=== PATIENT | female | born 1950 | race African-American/Black ===

== ENCOUNTER 2017-05-30 07:57 | Day surgery (SDC) | payer MEDICARE, OTHER ==
[~2017-05-30] VITALS: Ht 152.4 cm; Wt 60.8 kg
[~2017-05-30 07:57] MED LIST: ACETAMINOPHEN 325 MG TAB PO PRN; ALBU17IN INH; BSS with VANC/TOB/EPI for EYE CASES IR ONE; CYCLOPENTOLATE 2% OPHTH SOLN 2ML BTL XX ONE; LIDOCAINE 3.5 % 1ML OPHTH TOPICAL GEL OU ONE; LISI10TA4 PO; OFLOXACIN 0.3 % (OCUFLOX) OPTH SOL 5ML XX ONE; PHENYLEPHRINE 2.5% OPHTH SOL 2ML XX ONE; PREM.6256 PO; PROPARACAINE 0.5% OPHTH SOL 15ML XX PRN; TROPICAMIDE 1% OPHTH SOLN 2ML XX ONE
[2017-05-30] MEDS ORDERED: LR 500 ML IV SCH (08:15)
[2017-05-30] MEDS ORDERED: POVIDONE-IODINE 5% OPHTH PREP SOL 30ML As Ordered ONE (09:40)
[2017-05-30] MEDS ORDERED: MOXIFLOXACIN IN BSS 0.25MG/0.25ML INTRACAMERAL INJ (OR EYE ONLY)(J2280) As Ordered ONE (09:40)
[2017-05-30] MEDS ORDERED: HEALON DUET (HEALON 10MG/ML 0.55ML & HEALON ENDOCOAT 30MG/ML 0.85ML) As Ordered ONE (09:40)
[2017-05-30] MEDS ORDERED: LIDOCAINE 1% SDV 5 ML VIAL As Ordered ONE (09:40)
[2017-05-30] MEDS ORDERED: TRIAMCINOLONE PRES FR 40 MG/ML 1ML(TRIESENCE)(OR EYE ONLY)(J3300 PER 1MG) As Ordered ONE (09:40)
[2017-05-30] MEDS ORDERED: MIDAZOLAM INJ 2 MG/2 ML VIAL (J2250) As Ordered ONE (10:12)
[2017-05-30] MEDS ORDERED: fentaNYL 100 MCG/2 ML INJECTION (J3010) As Ordered ONE (10:14)
[2017-05-30] MEDS ORDERED: ONDANSETRON 4MG/2ML VIAL (J2405) IV PRN (10:45)
[2017-05-30] MEDS ORDERED: KETOROLAC 0.5% OPHTH SOLN XX ONE (10:45)
[2017-05-30] MEDS ORDERED: TRIMETHOBENZAMIDE 300 MG CAP PO PRN (10:45)
[2017-05-30] MEDS ORDERED: AcetaZOLAMIDE 500 MG ER CAP PO ONE (10:45)
[2017-05-30] MEDS ORDERED: ACETAMINOPHEN TAB 650MG DOSE (2X325MG) PO PRN (10:45)
[2017-05-30 10:50] VITALS: BP 155/81
== END 2017-05-30 11:15 | disposition home or self-care (01) ==
LOC: M SDC 07:57
PROVIDERS: ATTEND Ophthalmology
DX: H26.9 Unspecified cataract (principal); I10 Essential (primary) hypertension; M12.9 Arthropathy, unspecified; J44.9 Chronic obstructive pulmonary disease, unspecified; Z79.899 Other long term (current) drug therapy; Z87.39 Personal history of other diseases of the musculoskeletal system and connective tissue; Z78.0 Asymptomatic menopausal state; Z72.0 Tobacco use
CPT/HCPCS: 66984; J2250; J2280; J3010; J3300; V2632

== ENCOUNTER 2017-07-25 08:40 | Day surgery (SDC) | payer MEDICARE, OTHER ==
[~2017-07-25] VITALS: Ht 152.4 cm; Wt 62.1 kg
[~2017-07-25 08:40] MED LIST changes: +CYCLOPENTOLATE 2% OPHTH SOLN 2ML BTL OS ONE; -CYCLOPENTOLATE 2% OPHTH SOLN 2ML BTL XX ONE; +NEUR100C PO; +OFLOXACIN 0.3 % (OCUFLOX) OPTH SOL 5ML OS ONE; -OFLOXACIN 0.3 % (OCUFLOX) OPTH SOL 5ML XX ONE; +PHENYLEPHRINE 2.5% OPHTH SOL 2ML OS ONE; -PHENYLEPHRINE 2.5% OPHTH SOL 2ML XX ONE; +PHENYLEPHRINE HCL 10 % OPHTH. SOL 5ML OS ONE; +PHENYLEPHRINE HCL 10 % OPHTH. SOL 5ML OS PRN; +PROPARACAINE 0.5% OPHTH SOL 15ML OS PRN; -PROPARACAINE 0.5% OPHTH SOL 15ML XX PRN; +TROPICAMIDE 1% OPHTH SOLN 2ML OS ONE; -TROPICAMIDE 1% OPHTH SOLN 2ML XX ONE
[2017-07-25] MEDS ORDERED: POVIDONE-IODINE 5% OPHTH PREP SOL 30ML As Ordered ONE (11:18)
[2017-07-25] MEDS ORDERED: TRIAMCINOLONE PRES FR 40 MG/ML 1ML(TRIESENCE)(OR EYE ONLY)(J3300 PER 1MG) As Ordered ONE (11:18)
[2017-07-25] MEDS ORDERED: HEALON DUET (HEALON 10MG/ML 0.55ML & HEALON ENDOCOAT 30MG/ML 0.85ML) As Ordered ONE (11:19)
[2017-07-25] MEDS ORDERED: LIDOCAINE 1% SDV 5 ML VIAL As Ordered ONE (11:19)
[2017-07-25] MEDS ORDERED: MOXIFLOXACIN IN BSS 0.25MG/0.25ML INTRACAMERAL INJ (OR EYE ONLY)(J2280) As Ordered ONE (11:19)
[2017-07-25] MEDS ORDERED: MIDAZOLAM INJ 2 MG/2 ML VIAL (J2250) As Ordered ONE ×2 (11:47→11:55)
[2017-07-25] MEDS ORDERED: fentaNYL 100 MCG/2 ML INJECTION (J3010) As Ordered ONE (11:47)
[2017-07-25 12:30] VITALS: BP 121/78
[2017-07-25] MEDS ORDERED: AcetaZOLAMIDE 500 MG ER CAP PO ONE (12:45)
[2017-07-25] MEDS ORDERED: TRIMETHOBENZAMIDE 300 MG CAP PO PRN (12:45)
[2017-07-25] MEDS ORDERED: KETOROLAC 0.5% OPHTH SOLN OS ONE (12:45)
== END 2017-07-25 12:55 | disposition home or self-care (01) ==
LOC: M SDC 08:40
PROVIDERS: ATTEND Ophthalmology
DX: H26.9 Unspecified cataract (principal); I10 Essential (primary) hypertension; M10.9 Gout, unspecified; M12.9 Arthropathy, unspecified; J44.9 Chronic obstructive pulmonary disease, unspecified; Z79.899 Other long term (current) drug therapy; Z91.018 Allergy to other foods; Z72.0 Tobacco use
CPT/HCPCS: 66984; J2250; J2280; J3010; J3300; V2632

== ENCOUNTER → 2017-08-18 | Outpatient (CLI) | payer MEDICARE, OTHER | LOC: M RAD 09:17 | DX: N64.59 Other signs and symptoms in breast (principal) | CPT/HCPCS: 77066 ==

== ENCOUNTER 2018-03-06 06:02 | Day surgery (SDC) | payer MEDICARE, OTHER ==
[~2018-03-06 06:02] MED LIST changes: -ACETAMINOPHEN 325 MG TAB PO PRN; -ALBU17IN INH; -BSS with VANC/TOB/EPI for EYE CASES IR ONE; -CYCLOPENTOLATE 2% OPHTH SOLN 2ML BTL OS ONE; +LIDOCAINE 1% MDV 20ML VIAL SQ; -LIDOCAINE 3.5 % 1ML OPHTH TOPICAL GEL OU ONE; -LISI10TA4 PO; -NEUR100C PO; -OFLOXACIN 0.3 % (OCUFLOX) OPTH SOL 5ML OS ONE; -PHENYLEPHRINE 2.5% OPHTH SOL 2ML OS ONE; -PHENYLEPHRINE HCL 10 % OPHTH. SOL 5ML OS ONE; -PHENYLEPHRINE HCL 10 % OPHTH. SOL 5ML OS PRN; -PREM.6256 PO; -PROPARACAINE 0.5% OPHTH SOL 15ML OS PRN; -TROPICAMIDE 1% OPHTH SOLN 2ML OS ONE
[2018-03-06] MEDS ORDERED: LIDOCAINE 2% W/EPIN INJ 20ML **PRES FREE As Ordered (06:43)
[2018-03-06] MEDS: LIDOCAINE 3.5 % 1ML OPHTH TOPICAL GEL OU (06:45)
[2018-03-06] MEDS: LR 1,000 ML IV (07:00)
[2018-03-06] MEDS: POVIDONE-IODINE 5% OPHTH PREP SOL 30ML As Ordered (07:34)
[2018-03-06] MEDS: TETRACAINE 0.5% OPHTH SOLN 4ML As Ordered (07:35)
[2018-03-06] MEDS: SODIUM BICARBONATE 8.4% INJ 50MEQ 50 ML VIAL As Ordered (07:41)
[2018-03-06] MEDS ORDERED: LIDOCAINE 2% INJ 100 MG/5 ML SDV (FOR ANES.) As Ordered (07:44)
[2018-03-06] MEDS ORDERED: PROPOFOL 200 MG/20 ML VIAL As Ordered (07:44)
[2018-03-06] MEDS ORDERED: MIDAZOLAM INJ 2 MG/2 ML VIAL (J2250) As Ordered (07:44)
[2018-03-06] MEDS ORDERED: fentaNYL 100 MCG/2 ML INJECTION (J3010) As Ordered (07:47)
[2018-03-06] MEDS: TOBRADEX OPHTH OINT 3.5 GM As Ordered (08:28)
== END 2018-03-06 09:10 | disposition home or self-care (01) ==
LOC: M SDC 06:02
DX: H02.831 Dermatochalasis of right upper eyelid (principal); H02.834 Dermatochalasis of left upper eyelid; J44.9 Chronic obstructive pulmonary disease, unspecified; I10 Essential (primary) hypertension; M10.9 Gout, unspecified; Z79.899 Other long term (current) drug therapy
CPT/HCPCS: 15823

== ENCOUNTER → 2018-04-30 | Outpatient (REF) | payer MEDICARE, OTHER ==
[2018-04-30 11:10] LABS: PLATELET COUNT, AUTOMATED 402 10^3/uL (150-450)
[2018-04-30 11:13] LABS: INR 0.83; PROTHROMBIN TIME 11.5 SECONDS (12.1-14.4)
[2018-04-30 11:26] LABS: COLLAGEN EPINEPHRINE 116 SECONDS (74-162)
== END ==
LOC: M LABDRAW1 10:06
DX: Z79.01 Long term (current) use of anticoagulants (principal)
CPT/HCPCS: 85049

== ENCOUNTER → 2018-09-18 | Outpatient (REF) | payer MEDICARE, OTHER ==
[~2018-09-18] MED LIST changes: +ALBU17IN INH; -LIDOCAINE 1% MDV 20ML VIAL SQ; +LISI10TA2 PO; +LISI10TA4 PO; +NEUR100C PO; +PREM.6256 PO
[2018-09-18 11:14] LABS: C REACTIVE PROTEIN QUANTITATIV < 0.30 MG/DL (0.00-0.30); RHEUMATOID FACTOR QUANT < 10.0 IU/ML (<15.0)
[2018-09-20 00:06] LABS: ANTINUCLEAR ANTIBODIES DIRECT Negative (Negative); Lyme Disease IgG/IgM Antibodie <0.91 ISR (0.00-0.90); Lyme Disease IgM Ab Quantitati <0.80 index (0.00-0.79)
== END ==
LOC: M LABDRAW1 09:12
PROVIDERS: ATTEND Orthopaedic Surgery
DX: M16.11 Unilateral primary osteoarthritis, right hip (principal)

== ENCOUNTER → 2018-09-25 | Outpatient (CLI) | payer MEDICARE, OTHER ==
--- NOTE | 2018-09-25 15:17 | REP ---
TRIPLE PHASE BONE SCAN OF PELVIS AND HIPS: Following the intravenous administration of 21.8 mCi of technetium 99m MDP, the patient's pelvis is imaged in the flow phase in the anterior and posterior projections. No abnormal blood flow is seen. Immediate blood pool and 3.5 hour delayed images are performed in multiple projections. There is minimal increased blood pooling with mild increased delayed uptake in the superior right acetabulum. There is mild increased uptake along the pubic symphysis bilaterally. There is mild increased uptake of the sacroiliac joints symmetrically bilaterally. IMPRESSION: Mild increased uptake in the superior right acetabulum at the site of cystic change and edema seen on recent MRI of 09/05/2018. Mild increased uptake along the pubic symphysis and sacroiliac joints bilaterally most consistent with arthritic change. Electronically Signed by Lele Francois MD 09/25/2018 05:31 P
== END ==
LOC: M RAD 09:59
PROVIDERS: ATTEND Orthopaedic Surgery
DX: M16.11 Unilateral primary osteoarthritis, right hip (principal)
CPT/HCPCS: 78315; A9503

== ENCOUNTER 2019-09-07 02:45 | Emergency (ER) | payer MEDICARE, OTHER ==
[~2019-09-07] VITALS: Ht 152.4 cm; Wt 62.7 kg
[~2019-09-07 02:45] MED LIST changes: +LISI10TA15 PO; -LISI10TA2 PO
[2019-09-07] MEDS ORDERED: ALBUTEROL SULFATE 2.5 MG/0.5 ML INH NEB SOLN INH PRN (03:00)
[2019-09-07] MEDS ORDERED: IPRATROPIUM 0.5MG/ALBUTEROL 2.5MG INH SOL UD 3ML (DUONEB)(J7620) NEB PRN (03:00)
[2019-09-07] MEDS ORDERED: methylPREDNISolone INJ 125 MG/2 ML VIAL (J2930) IV ONE (03:45)
[2019-09-07 03:49] LABS: BASO # 0.1 10^3/uL (0.0-0.2); BASO % 0.5 % (0.0-1.0); EOS # 0.2 10^3/uL (0.0-0.5); EOS % 1.1 % (0.0-3.0); HEMATOCRIT 42.7 % (36.0-47.0); HEMOGLOBIN 13.2 g/dl (12.0-15.5); LYMPH # 4.3 10^3/uL (1.5-5.0); LYMPH % 28.3 % (24.0-44.0); MEAN CORPUSCULAR HEMOGLOBIN 30.7 pg (27.0-33.0); MEAN CORPUSCULAR HGB CONC 30.9 g/dl (32.0-36.5); MEAN CORPUSCULAR VOLUME 99.3 fl (80.0-96.0); MONO # 0.8 10^3/uL (0.0-0.8); MONO % 5.2 % (0.0-5.0); NEUTROPHILS # 9.8 10^3/uL (1.5-8.5); NEUTROPHILS % 64.7 % (36.0-66.0); PLATELET COUNT, AUTOMATED 385 10^3/uL (150-450); WHITE BLOOD COUNT 15.2 10^3/uL (4.0-10.0)
[2019-09-07 04:20] LABS: ALBUMIN 3.6 GM/DL (3.2-5.2); ALT/SGPT 15 U/L (12-78); BILIRUBIN,DIRECT < 0.1 MG/DL (0.0-0.2); BILIRUBIN,TOTAL 0.2 MG/DL (0.2-1.0); BLOOD UREA NITROGEN 15 MG/DL (7-18); CARBON DIOXIDE LEVEL 26 MEQ/L (21-32); CHLORIDE LEVEL 112 MEQ/L (98-107); CK-MB VALUE MASS 1.9 NG/ML (<3.6); CPK CREATINE PHOSPHOKINASE 106 U/L (26-192); CREATININE FOR GFR 0.98 MG/DL (0.55-1.30); GLOMERULAR FILTRATION RATE > 60.0 (>45); GLUCOSE, FASTING 109 MG/DL (70-100); MB/CK RELATIVE INDEX 1.79 (< OR =4); POTASSIUM SERUM 3.9 MEQ/L (3.5-5.1); SODIUM LEVEL 145 MEQ/L (136-145); TOTAL PROTEIN 7.1 GM/DL (6.4-8.2); TROPONIN I < 0.02 NG/ML (< 0.10)
[2019-09-07] MEDS ORDERED: PRED20TA PO (04:51)
[2019-09-07 05:00] VITALS: BP 106/58
[2019-09-07] MEDS ORDERED: ALBUTEROL 90 MCG/ACT 8GM HFA INHALER INH ONE (05:00)
--- NOTE | 2019-09-07 06:32 | ECGEPIP ---
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
--- NOTE | 2019-09-07 11:13 | REP ---
AP PORTABLE CHEST: 09/07/2019 COMPARISON: PA lateral 07/14/2015. CLINICAL HISTORY: Dyspnea and cough. FINDINGS: The lung scherer are well inflated with emphysematous changes suggested mid and upper lung zones and some minor fibrotic changes in the bases. No pleural effusion, lateral pleural thickening or apical scarring. I see no dense consolidation with air bronchograms. Heart is not enlarged. Aorta is calcified at the arch but without aneurysm. Airway midline and intact. No widening the mediastinum. Bones without any acute finding. Some minor degenerative changes in the spine and shoulders. IMPRESSION: 1. Hyperinflation with changes of COPD and emphysematous mid and upper lung zones. Some basilar fibrotic change. No acute infiltrate, cardiomegaly, edema or effusion. Electronically Signed by Eron Ortega MD 09/07/2019 07:56 P
== END 2019-09-07 05:19 | disposition home or self-care (01) ==
LOC: M ED 02:45 → EDBD 02:45 → M ED 05:19
DX: J40 Bronchitis, not specified as acute or chronic (principal); I10 Essential (primary) hypertension; J44.9 Chronic obstructive pulmonary disease, unspecified; M10.9 Gout, unspecified; Z79.899 Other long term (current) drug therapy; Z91.018 Allergy to other foods; F17.210 Nicotine dependence, cigarettes, uncomplicated
CPT/HCPCS: 36415; 71045; 80048; 80076; 82550; 82553; 84484; 85025; 93005; 93041; 94760; 96374; 99285; J2930

== ENCOUNTER → 2019-11-20 | Outpatient (CLI) | payer MEDICARE, OTHER ==
[~2019-11-20] MED LIST changes: +PRED20TA PO
== END ==
LOC: M LABSMTC 09:59
PROVIDERS: ATTEND Family Medicine
DX: Z11.59 Encounter for screening for other viral diseases (principal); Z20.818 Contact with and (suspected) exposure to other bacterial communicable diseases

== ENCOUNTER → 2020-05-18 | Outpatient (CLI) | payer MEDICARE, OTHER ==
--- NOTE | 2020-05-25 09:52 | REP ---
TWO-VIEW CHEST HISTORY: Chronic obstructive pulmonary disease (COPD), worsening shortness of breath. TECHNIQUE: Two views of the chest are performed. COMPARISON: Made with prior study of 07/14/2015. FINDINGS: There is no acute infiltrate. Lungs are clear. Heart is normal in size. There is mild calcification and tortuosity of the thoracic aorta. The mediastinal silhouette is unchanged. There are mild degenerative changes of the spine. IMPRESSION: No evidence of acute pulmonary disease. MTDD
== END ==
LOC: M WUC 11:44
PROVIDERS: ATTEND Internal Medicine
DX: J44.9 Chronic obstructive pulmonary disease, unspecified (principal)

== ENCOUNTER → 2020-05-30 | Outpatient (CLI) | payer SELFPAY | LOC: M LABSMTC 08:46 | PROVIDERS: ATTEND Pediatrics | DX: Z20.828 Contact with and (suspected) exposure to other viral communicable diseases (principal) ==

== ENCOUNTER → 2022-01-05 | Outpatient (CLI) | payer MEDICARE, OTHER ==
[~2022-01-05] MED LIST changes: -LISI10TA15 PO; +LISI10TA22 PO; +LISI10TA24 PO; -LISI10TA4 PO
== END ==
LOC: M SOG 08:23
PROVIDERS: ATTEND Orthopaedic Surgery Adult Reconstructive Orthopaedic Surgery
DX: M25.551 Pain in right hip (principal)

== ENCOUNTER → 2022-03-07 | Outpatient (CLI) | payer MEDICARE, OTHER ==
[~2022-03-07] MED LIST changes: +BUPIVACAINE HCL 0.5% 10ML VIAL As Ordered ONE; +ISOVUE-300 61% 5ML SYRINGE As Ordered ONE; +methylPREDNISolone 80MG/ML SUSP 1ML VIAL (J1040) As Ordered ONE
== END ==
LOC: M RADPRO 13:52
PROVIDERS: ATTEND Orthopaedic Surgery Adult Reconstructive Orthopaedic Surgery
DX: M25.851 Other specified joint disorders, right hip (principal)
CPT/HCPCS: 20610; 76000; J1040; Q9967

== ENCOUNTER → 2022-06-08 | Outpatient (CLI) | payer MEDICARE, OTHER ==
[~2022-06-08] MED LIST changes: -BUPIVACAINE HCL 0.5% 10ML VIAL As Ordered ONE; -ISOVUE-300 61% 5ML SYRINGE As Ordered ONE; -methylPREDNISolone 80MG/ML SUSP 1ML VIAL (J1040) As Ordered ONE
== END ==
LOC: M SOG 10:10
PROVIDERS: ATTEND Orthopaedic Surgery Adult Reconstructive Orthopaedic Surgery
DX: M19.032 Primary osteoarthritis, left wrist (principal)

== ENCOUNTER → 2022-06-30 | Outpatient (CLI) | payer MEDICARE, OTHER | LOC: M RAD 10:25 | PROVIDERS: ATTEND Orthopaedic Surgery Hand Surgery | DX: M19.032 Primary osteoarthritis, left wrist (principal); M25.532 Pain in left wrist ==

== ENCOUNTER → 2022-09-27 | Outpatient (CLI) | payer MEDICARE, OTHER ==
[2022-09-27 12:36] LABS: BLOOD UREA NITROGEN 20 MG/DL (9-23); CALCIUM LEVEL 10.7 MG/DL (8.3-10.6); CARBON DIOXIDE LEVEL 29 MMOL/L (20-31); CHLORIDE LEVEL 102 MMOL/L (98-107); CREATININE FOR GFR 0.93 MG/DL (0.55-1.30); GLOMERULAR FILTRATION RATE > 60.0 (>39); GLUCOSE, FASTING 79 MG/DL (74-106); PHOSPHORUS LEVEL 4.8 MG/DL (2.4-5.1); POTASSIUM SERUM 4.6 MMOL/L (3.5-5.1); SODIUM LEVEL 139 MMOL/L (136-145)
== END ==
LOC: M RAD 10:27
PROVIDERS: ATTEND Internal Medicine Cardiovascular Disease
DX: R06.02 Shortness of breath (principal)

== ENCOUNTER → 2022-10-21 | Outpatient (CLI) | payer MEDICARE, OTHER ==
[~2022-10-21] MED LIST changes: +AMLO1TAB25 PO; +ATOR40TA75 PO; +CARV6.25 PO; +CHLO125TA PO; +GABA800T4 PO; +SPIR-10 PO; +VENTAER INH
== END ==
LOC: M LABSMTC 08:08
PROVIDERS: ATTEND Anesthesiology
DX: Z01.812 Encounter for preprocedural laboratory examination (principal); Z20.822 Contact with and (suspected) exposure to COVID-19

== ENCOUNTER 2022-10-26 06:44 | Day surgery (SDC) | payer MEDICARE, OTHER ==
[~2022-10-26] VITALS: Ht 152.4 cm; Wt 63.0 kg
[2022-10-26] MEDS ORDERED: fentaNYL 100 MCG/2 ML INJECTION IV PRN ×2 (07:15→10:15)
[2022-10-26] MEDS ORDERED: LIDOCAINE 1% SDV 5ML VIAL PN ONE (07:15)
[2022-10-26] MEDS ORDERED: ROPIvacaine 0.5% 30ML VIAL PN ONE (07:15)
[2022-10-26] MEDS ORDERED: MIDAZOLAM INJ 2MG/2ML VIAL IV PRN (07:15)
[2022-10-26] MEDS ORDERED: LR 1,000 ML IV SCH ×2 (07:30→10:15)
[2022-10-26] MEDS ORDERED: LIDOCAINE 1% SDV 5ML VIAL SC PRN (07:30)
[2022-10-26] MEDS ORDERED: ceFAZolin SOD 2 GM in IV 1 EA IV ONE (07:40)
[2022-10-26] MEDS ORDERED: LIDOCAINE 2% 100MG/5ML SDV (FOR ANES.) As Ordered ONE (08:15)
[2022-10-26] MEDS ORDERED: propofoL 200 MG/20 ML VIAL As Ordered ONE (08:15)
[2022-10-26] MEDS ORDERED: ONDANSETRON 4MG 2ML VIAL As Ordered ONE (08:15)
[2022-10-26] MEDS ORDERED: BUPIVACAINE HCL 0.25% 30ML VIAL As Ordered ONE (08:16)
[2022-10-26] MEDS ORDERED: fentaNYL 100 MCG/2 ML INJECTION As Ordered ONE ×3 (08:16→13:06)
[2022-10-26] MEDS ORDERED: GLYCOPYRROLATE INJ 0.2 MG/ML 2 ML VIAL As Ordered ONE (08:38)
[2022-10-26] MEDS ORDERED: PHENYLephrine 500MCG 5ML (100MCG/ML) SYRINGE As Ordered ONE (10:00)
[2022-10-26] MEDS ORDERED: ePHEDrine SULFATE 25 MG/5 ML(5MG/ML) SYRINGE As Ordered ONE (10:00)
[2022-10-26] MEDS ORDERED: oxyCODONE 5MG TAB PO PRN (10:15)
[2022-10-26] MEDS ORDERED: ONDANSETRON 4MG 2ML VIAL IV PRN (10:15)
[2022-10-26] MEDS ORDERED: PERC5TAB12 PO (10:21)
[2022-10-26 11:33] VITALS: BP 120/56
== END 2022-10-26 11:40 | disposition home or self-care (01) ==
LOC: M SDC 06:44
PROVIDERS: ATTEND Orthopaedic Surgery Hand Surgery
DX: M19.032 Primary osteoarthritis, left wrist (principal); R00.8 Other abnormalities of heart beat; I10 Essential (primary) hypertension; E78.00 Pure hypercholesterolemia, unspecified; J44.9 Chronic obstructive pulmonary disease, unspecified; Z79.899 Other long term (current) drug therapy; Z79.890 Hormone replacement therapy; F17.210 Nicotine dependence, cigarettes, uncomplicated
CPT/HCPCS: 25215; 76000; 88300; J0690; J1100; J2250; J2370; J2405; J3010

== ENCOUNTER → 2022-11-08 | Outpatient (CLI) | payer MEDICARE, OTHER ==
[~2022-11-08] MED LIST changes: +PERC5TAB12 PO
== END ==
LOC: M SOG 08:51
PROVIDERS: ATTEND Physician Assistant
DX: Z47.89 Encounter for other orthopedic aftercare (principal)

== ENCOUNTER → 2023-03-23 | Outpatient (CLI) | payer MEDICARE, OTHER | LOC: M SOG 09:56 | PROVIDERS: ATTEND Orthopaedic Surgery | DX: M16.11 Unilateral primary osteoarthritis, right hip (principal) ==

== ENCOUNTER → 2023-06-23 | Outpatient (CLI) | payer MEDICARE, OTHER | LOC: M SOG 10:42 | PROVIDERS: ATTEND Orthopaedic Surgery | DX: M54.50 Low back pain, unspecified (principal) ==

== ENCOUNTER → 2024-08-26 | Outpatient (CLI) | payer MEDICARE, OTHER ==
[~2024-08-26] MED LIST changes: +GABA-1635 PO; -GABA800T4 PO
== END ==
LOC: M RAD 08:46
PROVIDERS: ATTEND Internal Medicine
DX: Z87.891 Personal history of nicotine dependence (principal)